=== PATIENT | female | born 1965 | race Caucasian/White ===

== ENCOUNTER → 2017-06-19 | Outpatient (CLI) | payer OTHER ==
[~2017-06-19] MED LIST: ALBU8.5H8 INH; CHOL100015 PO; CHOL500045 PO; LACT1CAP35 PO; MONT10TA6 PO; [UNRECOGNIZED DRUG - CODE] PO; [UNRECOGNIZED DRUG - OTHER] PO; ashwagandha PO; zovirax PO
== END ==
LOC: STAR 14:58
PROVIDERS: ATTEND Surgery
DX: Z02.9 Encounter for administrative examinations, unspecified (principal)

== ENCOUNTER 2017-06-23 05:57 | Inpatient (IN) | payer BC, OTHER ==
[~2017-06-23] VITALS: Ht 170.2 cm; Wt 84.5 kg
[2017-06-23 06:42] VITALS: BP 143/85
[2017-06-23] MEDS ORDERED: LACTATED RINGERS 1,000 ML IV SCH (06:42)
[2017-06-23] MEDS ORDERED: EPINEPHRINE 1 MG/ML, 1ML ONE (06:56)
[2017-06-23] MEDS ORDERED: BUPIVACAINE/PF 0.5% ONE (06:56)
[2017-06-23] MEDS ORDERED: MIDAZOLAM 1 MG/ML, 2ML ONE (07:13)
[2017-06-23] MEDS ORDERED: FENTANYL PF 100 MCG/2ML ONE ×3 (07:13→09:35)
[2017-06-23] MEDS ORDERED: ONDANSETRON 2MG/ML, 2ML ONE (07:17)
[2017-06-23] MEDS ORDERED: ROCURONIUM 10MG/ML,5ML ONE (07:17)
[2017-06-23] MEDS ORDERED: DEXAMETHASONE 4 MG/ML, 1ML ONE (07:17)
[2017-06-23] MEDS ORDERED: PROPOFOL 10 MG/ML, 20ML ONE (07:17)
[2017-06-23] MEDS ORDERED: CEFAZOLIN 1,000 MG ONE ×2 (07:17)
[2017-06-23] MEDS ORDERED: SUCCINYLCHOLINE 20 MG/ML, 10ML ONE (07:27)
[2017-06-23] MEDS ORDERED: CLINDAMYCIN 150 MG/ML, 6ML ONE (07:37)
[2017-06-23] MEDS ORDERED: BUPIVACAINE/PF-EPI 0.5% 1:200K INFIL ONE (07:56)
[2017-06-23] MEDS ORDERED: EPINEPHRINE 1 MG/ML, 1ML INFIL ONE (07:57)
[2017-06-23] MEDS ORDERED: ACETAMINOPHEN 325 MG TABLET PO PRN ×2 (08:00→12:30)
[2017-06-23] MEDS ORDERED: OXYcodone 5 MG/5 ML ORAL.SOL UDC PO PRN (08:00)
[2017-06-23] MEDS ORDERED: hydrALAzine 20 MG/ML, 1ML IV PRN ×2 (08:00→13:00)
[2017-06-23] MEDS ORDERED: METOCLOPRAMIDE 5 MG/ML, 2ML IV PRN (08:00)
[2017-06-23] MEDS ORDERED: LABETALOL 5MG/ML, 20ML IV PRN (08:00)
[2017-06-23] MEDS ORDERED: ONDANSETRON 2MG/ML, 2ML IVPush PRN ×2 (08:00→12:00)
[2017-06-23] MEDS ORDERED: HYDROmorphone 1 MG/ML, 1ML ONE (09:35)
[2017-06-23] MEDS ORDERED: HYDROcodone/APAP 7.5-325MG/15ML UDC ONE (09:35)
[2017-06-23] MEDS: FENTANYL PF 100 MCG/2ML IV PRN ×2 (09:36→09:51)
[2017-06-23] MEDS: HYDROmorphone 1 MG/ML, 1ML IV PRN ×2 (09:42→09:57)
[2017-06-23] MEDS ORDERED: HYDROcodone/APAP 7.5-325MG/15ML UDC PO PRN (10:00)
[2017-06-23] MEDS ORDERED: ACETAMINOPHEN 650 MG SUPP PR PRN (12:30)
[2017-06-23 13:00] VITALS: BP 144/84
[2017-06-23] MEDS ORDERED: ONDANSETRON 2MG/ML, 2ML IV PRN (13:00)
[2017-06-23] MEDS ORDERED: ALBUTEROL SULFATE 2.5 MG/3 ML NPPB PRN (13:00)
[2017-06-23] MEDS: POTASSIUM CHLORIDE 20 MEQ in D5%-0.45% NACL 1,000 ML IV SCH ×2 (14:25→20:37)
[2017-06-23] MEDS: CALCIUM/VITAMIN D3 250-125 TABLET PO SCH ×2 (17:23→20:48)
[2017-06-23 18:28] VITALS: BP 157/84
[2017-06-23] MEDS: HYDROcodone/APAP 5/325 TABLET PO PRN (20:48)
[2017-06-23] MEDS ORDERED: MONTELUKAST 10 MG TABLET PO SCH (21:00)
[2017-06-23 23:49] VITALS: BP 135/69
[2017-06-24] MEDS: HYDROcodone/APAP 5/325 TABLET PO PRN ×2 (02:17→07:50)
[2017-06-24 03:53] VITALS: BP 133/71
[2017-06-24 05:15] LABS: PTH INTACT INTERPRETATION ** Comment **
[2017-06-24 05:47] LABS: PARATHYROID HORMONE INTACT 4.1 pg/mL (14-72)
[2017-06-24] MEDS ORDERED: LEVOTHYROXINE 125 MCG TABLET PO SCH (06:00)
[2017-06-24 07:41] VITALS: BP 130/68
[2017-06-24] MEDS: CALCIUM/VITAMIN D3 250-125 TABLET PO SCH (07:49)
[2017-06-24] MEDS ORDERED: LACTOBACILLUS CHEW TABLET PO SCH (09:00)
[2017-06-24] MEDS ORDERED: CHOLECALCIFEROL 1,000 UNIT TABLET PO SCH (09:00)
[2017-06-24] MEDS ORDERED: HYDR-3240 PO (11:13)
[2017-06-24] MEDS ORDERED: CALC-123 PO (11:15)
[2017-06-24] MEDS ORDERED: LEVO137T2 PO (11:15)
[2017-06-25] MEDS ORDERED: CHOLECALCIFEROL 1,000 UNIT TABLET PO SCH (09:00)
== END 2017-06-24 11:30 | disposition home or self-care (01) | DRG 627 ==
LOC: OUT 05:57 → 4NOR 10:30 → OUT 10:56 → DCLOUNGE 06-24 11:07
PROVIDERS: ADMIT Surgery; ATTEND Surgery
PROC: 0GTK0ZZ Resection of Thyroid Gland, Open Approach (ICD-10-PCS; principal; 2017-06-23 07:30)
DX: D34 Benign neoplasm of thyroid gland (principal); E04.2 Nontoxic multinodular goiter
CPT/HCPCS: 36415; 82310; 83970; 88307; J0171; J0690; J1100; J1170; J2250; J2405; J2704; J3010; J3480; J3490; C1760; J0330; J7120